=== PATIENT | male | born 1950 | race Caucasian/White ===

== ENCOUNTER 2017-05-25 19:50 | Inpatient (IN) ==
[2017-05-25] MEDS: 0.9 % Sodium Chloride 1,000 ML IVC SCH (22:33)
[2017-05-25 22:34] LABS: Basophils % 0.1 %; Immature Granulocytes % 0.4 % (0-4); Immature Platelets 5.3 % (1.1-6.1); Lymphocytes # 2.3 K/mcL (0.6-4.6); Lymphocytes % 14.6 %; Mean Corpuscular HGB Conc 33.3 g/dL (31.6-35.5); Mean Corpuscular Hemoglobin 29.2 pg (28.0-33.3); Mean Corpuscular Volume 87.5 fL (83.0-100.0); Mean Platelet Volume 10.4 fL (9.4-12.4); Monocytes # 1.6 K/mcL (0.0-1.3); Neutrophils # 11.9 K/mcL (1.6-8.9); Platelet Count 218 K/mcL (140-400); Red Cell Distribution Width 13.2 % (11.5-14.5); Segmented Neutrophils % 74.9 %
[2017-05-25 22:43] LABS: Prothrombin Time 10.5 Seconds (9.4-12.1)
[2017-05-25 22:46] LABS: Activated Partial Thrombo Time 27.5 Seconds (26.0-36.0)
[2017-05-25 22:49] LABS: Alanine Aminotransferase 15 Units/L (0-55); Albumin 3.9 g/dL (3.5-5.0); Albumin/Globulin Ratio 1.1 (1.1-2.2); Alkaline Phosphatase 120 Units/L (38-126); Amylase 43 Units/L (25-125); Aspartate Amino Transferase 21 Units/L (5-34); BUN/Creatinine Ratio 11 (6-26); Bilirubin,Direct 0.2 mg/dL (0.0-0.5); Bilirubin,Indirect 0.3 mg/dL (0.0-1.2); Bilirubin,Total 0.5 mg/dL (0.2-1.2); Blood Urea Nitrogen 15 mg/dL (8-26); Calcium 9.9 mg/dL (8.6-10.8); Carbon Dioxide 33 mEq/L (19-29); Chloride 97 mEq/L (98-109); Globulin 3.5 g/dL (2.4-3.5); Glucose 115 mg/dL (70-99); Magnesium 2.3 mg/dL (1.6-2.6); Osmolality,Calculated 290 (280-300); Phosphorous 4.4 mg/dL (2.3-4.7); Sodium 139 mEq/L (136-145); Total Protein 7.4 g/dL (6.0-8.3); eGFR For African Americans > 60 (> 60); eGFR For Non-African Americans 50 (> 60)
[2017-05-25 22:50] LABS: Lipase < 10 Units/L (8-78)
[2017-05-25] MEDS ORDERED: Levofloxacin 750 MG/150 ML 750 MG/150 ML BAG IVPB ONE (23:17)
--- NOTE | 2017-05-26 00:25 | Emergency Department Note ---
Disposition Clinical Impression: Lactic acidosis Disposition: Admitted As Inpatient Condition: Good [facility]: [facility] Care Provider[facility] - General Adult HPI - General Chief complaint: ED Abdominal Pain Stated complaint: abd pain/n/v Time Seen by Provider: 05/25/17 20:13 Source: patient, EMS Limitations: no limitations Nursing Notes Reviewed: Yes Vital Signs Reviewed: Yes - History of Present Illness HPI Narrative: This is a 66-year-old male presents with concern for bowel obstruction. He is a history of having shrapnel in his abdomen and had previous bowel surgery multiple years ago. He now presents from the CT after noncontrast CT scan of the abdomen which shows possible small bowel traction with adhesion. He has had vomiting since last evening. He has no fever or chills. He does have some active nausea and retching on arrival. Basic laboratory analyses from the [facility] shows no significant metabolic derangement with normal creatinine and additionally shows no significant leukocytosis. The patient was not given any medications at the [facility]. General: No acute distress HEENT: Pupils equal and reactive to light, extraoccular muscle movement is normal, TMS are clear bilaterally. Heart: RRR, No murmor rub or gallop Lungs: lungs clear, no wheezing, rales or ronchi. ABD: Mildly tender without signs of peritonitis Extremities: No cyanosis, clubbing or edema Neuro: CN 2-12 in tact, no focal deficit. strength 5/5. Medical decision making This is a male patient with previous bowel surgeries now with concern for bowel obstruction. 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 This was completed and shows no evidence of overt obstruction but shows potential developing obstruction versus ileus. The patient had an NG tube placed for active emesis with resolution of nausea. There is no significant output from the NG tube. His nausea is now controlled. He did have a bowel movement in the emergency Department which makes me suspect that this is not complete obstruction at this time. I did provide IV hydration as well as Levaquin for possible aspiration pneumonia. The patient will be admitted to hospital for evaluation of pneumonia, ileus, lactic acidosis. Pancultures were sent from the emergency department. The patient was stable at the time of admission. Pain Scale: 5 - Related Data Allergies Allergy/AdvReac Type Severity Reaction Status Date / Time Penicillins AdvReac Intermediate Hives Verified 05/25/17 20:54 All systems ED: reviewed and negative except as stated. Past Medical History - Past Medical History Medical history: Reports: hyperlipidemia, hypertension Psychiatric history: Reports: depression - Social History Smoking Status: Current every day smoker Smokeless Tobacco Status: No Alcohol use: Reports: rarely Drug use: Reports: none Physical Exam - General Limitations: no limitations General appearance: alert Course Vital Signs Temperature 98.4 F 05/25/17 19:52 Pulse Rate 77 05/25/17 19:52 Respiratory Rate 17 05/25/17 19:52 Blood Pressure 131/84 05/25/17 19:52 O2 Sat by Pulse Oximetry 94 05/25/17 19:52 Temperature 98.4 F 05/25/17 19:52 Pulse Rate 72 05/25/17 23:13 Respiratory Rate 16 05/25/17 23:13 Blood Pressure 127/73 05/25/17 23:13 O2 Sat by Pulse Oximetry 95 05/25/17 23:13 Oxygen Delivery Oxygen Delivery Room Air Medical Decision Making - Lab Data Result diagrams: 05/25/17 22:21 05/25/17 22:21 Lab Results 05/25/17 05/25/17 05/25/17 Range/Units 21:10 22:21 22:21 WBC 15.9 H (4.3-11.1) K/mcL RBC 4.80 (4.19-5.50) M/mcL Hgb 14.0 (12.9-16.9) g/dL Hct 42.0 (37.5-50.1) % MCV 87.5 (83.0-100.0) fL MCH 29.2 (28.0-33.3) pg MCHC 33.3 (31.6-35.5) g/dL RDW 13.2 (11.5-14.5) % Plt Count 218 (140-400) K/mcL MPV 10.4 (9.4-12.4) fL Immature Gran % 0.4 (0-4) % Seg Neutrophils % 74.9 % Lymphocytes % 14.6 % Monocytes % 10.0 % Eosinophils % 0.0 % Basophils % 0.1 % Neutrophils # 11.9 H (1.6-8.9) K/mcL Lymphocytes # 2.3 (0.6-4.6) K/mcL Monocytes # 1.6 H (0.0-1.3) K/mcL Eosinophils # 0.0 (0.0-0.6) K/mcL Basophils # 0.0 (0.0-0.2) K/mcL Immature Plt Fraction 5.3 (1.1-6.1) % PT 10.5 (9.4-12.1) Seconds INR 1.0 APTT 27.5 (26.0-36.0) Seconds Sodium (136-145) mEq/L Potassium (3.5-4.5) mEq/L Chloride (98-109) mEq/L Carbon Dioxide (19-29) mEq/L BUN (8-26) mg/dL Creatinine (0.72-1.25) mg/dL Est GFR ( Amer) (> 60) Est GFR (Non-Af Amer) (> 60) BUN/Creatinine Ratio (6-26) Glucose (70-99) mg/dL Calculated Osmolality (280-300) Lactic Acid 5.5 H* (0.5-2.2) mmol/L Calcium (8.6-10.8) mg/dL Phosphorus (2.3-4.7) mg/dL Magnesium (1.6-2.6) mg/dL Total Bilirubin (0.2-1.2) mg/dL Direct Bilirubin (0.0-0.5) mg/dL Indirect Bilirubin (0.0-1.2) mg/dL AST (5-34) Units/L ALT (0-55) Units/L Alkaline Phosphatase (38-126) Units/L Troponin I (0-0.03) ng/mL Serum Total Protein (6.0-8.3) g/dL Albumin (3.5-5.0) g/dL Globulin (2.4-3.5) g/dL Albumin/Globulin Ratio (1.1-2.2) Amylase (25-125) Units/L Lipase (8-78) Units/L 05/25/17 05/25/17 05/25/17 Range/Units 22:21 22:21 22:21 WBC (4.3-11.1) K/mcL RBC (4.19-5.50) M/mcL Hgb (12.9-16.9) g/dL Hct (37.5-50.1) % MCV (83.0-100.0) fL MCH (28.0-33.3) pg MCHC (31.6-35.5) g/dL RDW (11.5-14.5) % Plt Count (140-400) K/mcL MPV (9.4-12.4) fL Immature Gran % (0-4) % Seg Neutrophils % % Lymphocytes % % Monocytes % % Eosinophils % % Basophils % % Neutrophils # (1.6-8.9) K/mcL Lymphocytes # (0.6-4.6) K/mcL Monocytes # (0.0-1.3) K/mcL Eosinophils # (0.0-0.6) K/mcL Basophils # (0.0-0.2) K/mcL Immature Plt Fraction (1.1-6.1) % PT (9.4-12.1) Seconds INR APTT (26.0-36.0) Seconds Sodium 139 (136-145) mEq/L Potassium 4.0 (3.5-4.5) mEq/L Chloride 97 L (98-109) mEq/L Carbon Dioxide 33 H (19-29) mEq/L BUN 15 (8-26) mg/dL Creatinine 1.41 H (0.72-1.25) mg/dL Est GFR ( Amer) > 60 (> 60) Est GFR (Non-Af Amer) 50 L (> 60) BUN/Creatinine Ratio 11 (6-26) Glucose 115 H (70-99) mg/dL Calculated Osmolality 290 (280-300) Lactic Acid 1.5 (0.5-2.2) mmol/L Calcium 9.9 (8.6-10.8) mg/dL Phosphorus 4.4 (2.3-4.7) mg/dL Magnesium 2.3 (1.6-2.6) mg/dL Total Bilirubin 0.5 (0.2-1.2) mg/dL Direct Bilirubin 0.2 (0.0-0.5) mg/dL Indirect Bilirubin 0.3 (0.0-1.2) mg/dL AST 21 (5-34) Units/L ALT 15 (0-55) Units/L Alkaline Phosphatase 120 (38-126) Units/L Troponin I 0.01 (0-0.03) ng/mL Serum Total Protein 7.4 (6.0-8.3) g/dL Albumin 3.9 (3.5-5.0) g/dL Globulin 3.5 (2.4-3.5) g/dL Albumin/Globulin Ratio 1.1 (1.1-2.2) Amylase 43 (25-125) Units/L Lipase < 10 (8-78) Units/L Critical Care Time Total Critical Care Time: 35 Attestation: I think her than 35 minutes of critical care time is sustaining this acutely ill patient suffering from lactic acidosis and possible small bowel obstruction this is excluding billable procedures
[2017-05-26] MEDS ORDERED: 0.9 % Sodium Chloride 1,000 ML ONE (02:08)
[2017-05-26] MEDS: 0.9 % Sodium Chloride 1,000 ML IVC SCH ×4 (02:09→21:06)
[2017-05-26] MEDS ORDERED: Naloxone 0.4 MG/ML INJ IVP PRN (04:53)
--- NOTE | 2017-05-26 05:05 | Internal Med History&Physical ---
Date of Encounter: 05/26/17 Time of Encounter: 05:01 Assessment and Plan (1) Small bowel obstruction Current visit: Yes Status: Acute 1. Will continue npo. 2. NG to LIWS. 3. IV fluid maintenance. 4. Consult surgery. 5. Will order acute abdominal series to evaluate today. (2) Lactic acidosis Current visit: Yes Status: Acute 1. Likely due to SBO. 2. Trend lactate levels. 3. Continue IVF and IV antibiotics. 4. Follow blood cultures. (3) DVT prophylaxis Current visit: Yes Status: Acute 1. Heparin SQ. Internal Medicine - H&P: HPI Chief complaint: abdominal pain; vomiting Admitted From: Emergency Dept Plans for Post Hospital Care: Home History of present illness: Mr. Ochoa is a 66 year old male who presented to our ER from the [place] urgent care. He had a 3 to 4-day history of protracted nausea, vomiting, abdominal pain, and abdominal cramping. This led him to go to the urgent care at the [place] who then referred him to our ER. CT scan and workup revealed small bowel obstruction with lactic acidosis. He was fluid resuscitated and had an NG tube placed. Additionally, blood cultures were drawn and antibiotics were started. The lactic acid was normal. He was then admitted to the hospitalist service. Upon my assessment of the patient, he feels much better. He still has some vague abdominal pain and cramping, but he is starting to pass flatus now. He has an NG in place, and he states that the NG tube has helped his symptoms immensely. He has a history of exploratory laparotomy from a accident. He denies any history of prior small bowel obstruction. Given the severity of his presentation, lactic acidosis, and CT findings, I am going to consult surgery for assistance in comanagement and surgical guidance. Past Med Surg Social Fam HX - Past Medical History Attestation: Yes The following information was validated with the patient. Source: patient, old records reviewed ([place] records) Medical history: hyperlipidemia, hypertension Psychiatric history: depression - Past Surgical History Surgical History: other (exploratory laparatomy) - Social History Smoking Status: Current every day smoker Smokeless Tobacco Status: No Alcohol use: rarely Drug use: none Current living situation: Home Activity Level: Independent ambulation - Family History Mother Living Status: Hx Family Cancer: Yes (Breast) Sister Living Status: Hx Family Endocrine Disorder: Yes (Lupus) Internal Medicine - H&P: Meds 3 Allergy/AdvReac Type Severity Reaction Status Date / Time Penicillins AdvReac Intermediate Hives Verified 05/25/17 20:54 - Constitutional Constitutional: fever(s), no chills, no night sweats - EENT Eyes: no blurry vision, no change in vision Ears: no ear pain, no tinnitus Nose, mouth and throat: no nasal congestion, no sinus pressure, no sore throat - Cardiovascular Cardiovascular ROS IM: no chest pain, no dyspnea, no dyspnea on exertion, no palpitations - Respiratory Respiratory: no cough, no hemoptysis, no excessive phlegm production - Gastrointestinal Gastrointestinal: abdominal pain, cramping, nausea, vomiting, no diarrhea, no hematemesis, no hematochezia, no melena - Genitourinary Genitourinary ROS male: no dysuria, no flank pain, no hematuria - Musculoskeletal Musculoskeletal ROS IM: no arthralgias, no back pain - Integumentary Integumentary IM: no rash, no jaundice - Neurological Neurological ROS: no dizziness, no focal weakness, no frequent falls, no headache(s) - Psychiatric Psychiatric: no anxiety, no depression - Endocrine Endocrine IM: no polydipsia, no polyuria - Hematologic/Lymphatic Hematologic/Lymphatic: no easy bruising, no lymphadenopathy - Allergic/Immunologic Allergic/Immunologic: no wheezing, no GI upset with certain foods - Constitutional Vitals: Temp Pulse Resp BP Pulse Ox 97.9 F 69 15 94/57 96 05/26/17 03:28 05/26/17 03:28 05/26/17 03:28 05/26/17 03:28 05/26/17 03:28 General appearance: Present: cooperative, mild distress, A&O X 3, pleasant - Head Head exam: Present: atraumatic, normal inspection - Eye Eye exam: Present: EOMI, PERRL. Absent: scleral icterus Pupils: Present: normal accommodation - ENT ENT exam: Present: mucous membranes dry, normal exam Additional comments: NG tube in place - Neck Neck exam general surgery: Present: full ROM, supple. Absent: tenderness - Respiratory Respiratory exam: Present: CTAB. Absent: chest wall tenderness, rales, rhonchi , wheezes - Cardiovascular Cardiovascular exam: Present: RRR, +S1, +S2. Absent: diastolic murmur, systolic murmur - GI/Abdominal GI/Abdominal exam: Present: distended (mildy), hypoactive bowel sounds, tenderness (mild), no peritoneal signs. Absent: guarding, hepatomegaly, normal bowel sounds, rebound, splenomegaly - Extremities Exam Extremities exam: Present: full ROM, warm, radial pulses palpable and symmetrical. Absent: calf tenderness, joint swelling - Back Exam Back exam: Absent: CVA tenderness (L), CVA tenderness (R) - Neurological Exam Neurological exam: Present: alert, CN II-XII intact, oriented X3, no focal deficits, strengths equal and symetr throughout - Psychiatric Psychiatric exam: Present: normal affect, normal mood - Skin Skin exam: Present: dry, warm. Absent: rash Internal Med - H&P Results - Labs CBC & Chem 7: 05/25/17 22:21 05/25/17 22:21 - EKG Data -: EKG Interpreted by Myself EKG shows normal: sinus rhythm - EKG Data EKG comments: 05/26/17 05:10 NSR; WNL - Diagnostic Studies CT scan - abdomen Additional comments: Report reviewed: JEOVANNYO
[2017-05-26] MEDS: Pantoprazole 40 MG VIAL IVP SCH (05:26)
[2017-05-26] MEDS: *HR* Heparin 5,000 UNIT/ML VIAL SQ SCH ×2 (05:26→18:05)
[2017-05-26 06:01] LABS: Basophils % 0.1 %; Eosinophils # 0.1 K/mcL (0.0-0.6); Eosinophils % 0.5 %; Hematocrit 31.9 % (37.5-50.1); Immature Granulocytes % 0.1 % (0-4); Lymphocytes # 3.4 K/mcL (0.6-4.6); Lymphocytes % 33.6 %; Mean Corpuscular HGB Conc 33.2 g/dL (31.6-35.5); Mean Corpuscular Hemoglobin 29.1 pg (28.0-33.3); Mean Corpuscular Volume 87.6 fL (83.0-100.0); Mean Platelet Volume 10.3 fL (9.4-12.4); Monocytes % 9.9 %; Neutrophils # 5.7 K/mcL (1.6-8.9); Platelet Count 157 K/mcL (140-400); Red Blood Count 3.64 M/mcL (4.19-5.50); Red Cell Distribution Width 13.3 % (11.5-14.5); Segmented Neutrophils % 55.8 %
[2017-05-26 06:10] LABS: Hemoglobin 10.6 g/dL (12.9-16.9)
[2017-05-26 06:14] LABS: Alanine Aminotransferase 11 Units/L (0-55); Albumin 2.7 g/dL (3.5-5.0); Albumin/Globulin Ratio 1.1 (1.1-2.2); Alkaline Phosphatase 83 Units/L (38-126); Aspartate Amino Transferase 16 Units/L (5-34); BUN/Creatinine Ratio 15 (6-26); Bilirubin,Total 0.5 mg/dL (0.2-1.2); Blood Urea Nitrogen 15 mg/dL (8-26); Carbon Dioxide 27 mEq/L (19-29); Chloride 105 mEq/L (98-109); Globulin 2.4 g/dL (2.4-3.5); Glucose 94 mg/dL (70-99); Osmolality,Calculated 285 (280-300); Potassium 4.1 mEq/L (3.5-4.5); Sodium 137 mEq/L (136-145); Total Protein 5.1 g/dL (6.0-8.3); eGFR For African Americans > 60 (> 60); eGFR For Non-African Americans > 60 (> 60)
[2017-05-26] MEDS ORDERED: MetroNIDAZOLE 500 MG/100 ML 500 MG/100 ML BAG IVPB SCH (08:00)
--- NOTE | 2017-05-26 09:49 | Event Note ---
<Serene Hoover - Last Filed: 05/26/17 14:09> Date of Encounter: 05/26/17 Time of Encounter: 09:30 Patient seen up in bed comfortably watching television he states that his abdominal pain has almost resolved in his only tender to palpation his only complaint is the NG tube and he would like to out as soon as possible he denies fever, chills, nausea, vomiting. Gen.: Vitals noted. No acute distress. AAOx3 HEENT: oropharynx clear, Normocephalic, atraumatic Cardiac: RRR, no murmur, +S1/S2 Pulmonary: CTA bilaterally, no wheezes, rales or rhonchi, equal chest expansion Abdomen: soft, minimal epigastric tender, Bowel sounds noted, no guarding Extremities: no BLE edema, nontender calf, no cyanosis or clubbing Neuro: A&Ox3, moves all extremities, no focal deficits Psych: Appropriate mood and behavior A/P: small bowel obstruction CT abdomen showed development of small bowel obstruction patient reports that has abdominal pain is improving patient reports a stool smear he had yesterday blood cultures pending -Surgery following -NG tube placed -NPO, bowel rest -continue antiemetics -stop antibiotics due to decreased lactic acid (0.7) and afebrile -supportive care -serial abdominal exams Lactic acidosis most likely due to SPO improving and is now 0.7, admission it was 1.5 -see plan above Anemia most likely delutional from IV fluid there is no active bleeding patient has a history of hemorrhoids -fecal heme occult ordered -will continue to monitor H&H DVT prophylaxis heparin sq <Do Monroe - Last Filed: 05/26/17 15:41> Date of Encounter: 05/26/17 I saw and examined the patient independently. I have discussed with resident Dr Hoover regarding management plan. Patient feels fine, can passing gas. Consider partial small bowel obstruction. Surgical consult appreciated. We will continue nothing by mouth, IV fluid, NG tube with intermittent suction. Continue closely monitor patient.
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
[2017-05-26 11:56] LABS: Bilirubin,Urine Negative (Negative); Blood,Urine Negative (Negative); Clarity,Urine Clear (Clear); Color,Urine Yellow (Yellow); Glucose,Urine (UA) Normal (Normal); Ketones,Urine Negative (Negative); Leukocyte Esterase,Urine Negative (Negative); Nitrite,Urine Negative (Negative); PH,Urine 6.5 pH Units (5.0-8.0); Protein,Urine Negative (Neg-Trace); Specific Gravity,Urine 1.018 (1.010-1.025); Urobilinogen,Urine Normal (Normal)
[2017-05-26] MEDS: *HR* Morphine 2 MG/ML SYRINGE IVP PRN ×2 (15:48→21:05)
--- NOTE | 2017-05-26 16:53 | Electrocardiograph Report ---
[address] [address] Test Date: 2017-05-25 Pat Name: Renan Ochoa Department: 102 Room: 3A Gender: M Helpdesk Manager: Ekp : 1950 Requested By: Stewart Huerta Order Number: [id number] Reading MD: Marilyn Aviles Measurements Intervals [place] Rate: 74 P: 43 TX: 152 QRS: 34 QRSD: 85 T: 46 QT: 364 QTc: 392 Interpretive Statements SINUS RHYTHM Electronically Signed On 05-26-2017 16:51:33 EDT by Marilyn Aviles
[2017-05-27] MEDS ORDERED: Levofloxacin 750 MG/150 ML 750 MG/150 ML BAG IVPB SCH
[2017-05-27] MEDS: *HR* Promethazine 25 MG/ML VIAL IVP PRN ×2 (02:03→19:40)
[2017-05-27] MEDS: *HR* Morphine 2 MG/ML SYRINGE IVP PRN ×2 (02:04→19:39)
[2017-05-27] MEDS: 0.9 % Sodium Chloride 1,000 ML IVC SCH ×3 (05:08→22:49)
[2017-05-27] MEDS: *HR* Heparin 5,000 UNIT/ML VIAL SQ SCH ×2 (05:34→17:00)
[2017-05-27] MEDS: Pantoprazole 40 MG VIAL IVP SCH (05:35)
[2017-05-27 05:53] LABS: Basophils % 0.2 %; Eosinophils # 0.1 K/mcL (0.0-0.6); Hematocrit 34.1 % (37.5-50.1); Hemoglobin 11.2 g/dL (12.9-16.9); Immature Granulocytes % 0.2 % (0-4); Lymphocytes # 2.7 K/mcL (0.6-4.6); Lymphocytes % 30.7 %; Mean Corpuscular HGB Conc 32.8 g/dL (31.6-35.5); Mean Corpuscular Hemoglobin 28.8 pg (28.0-33.3); Mean Corpuscular Volume 87.7 fL (83.0-100.0); Mean Platelet Volume 10.8 fL (9.4-12.4); Monocytes # 0.6 K/mcL (0.0-1.3); Monocytes % 6.9 %; Neutrophils # 5.4 K/mcL (1.6-8.9); Platelet Count 164 K/mcL (140-400); Red Blood Count 3.89 M/mcL (4.19-5.50); Red Cell Distribution Width 13.2 % (11.5-14.5)
[2017-05-27 06:07] LABS: BUN/Creatinine Ratio 18 (6-26); Blood Urea Nitrogen 15 mg/dL (8-26); Calcium 8.6 mg/dL (8.6-10.8); Carbon Dioxide 23 mEq/L (19-29); Chloride 110 mEq/L (98-109); Glucose 72 mg/dL (70-99); Osmolality,Calculated 289 (280-300); Potassium 4.1 mEq/L (3.5-4.5); Sodium 140 mEq/L (136-145); eGFR For African Americans > 60 (> 60); eGFR For Non-African Americans > 60 (> 60)
[2017-05-27 06:08] LABS: % Iron Saturation 21 % (20-55); Iron 49 mcg/dL (65-175); Transferrin 163 mg/dL (174-364)
[2017-05-27 06:28] LABS: Ferritin 158 ng/ml (22-275)
[2017-05-27 06:36] LABS: Folate 16.3 ng/mL (7.0-31.4)
--- NOTE | 2017-05-27 09:51 | Internal Med Progress Note ---
<Serene Hoover - Last Filed: 05/27/17 12:40> Date of Encounter: 05/27/17 Time of Encounter: 09:48 - Assessment and plan (1) Small bowel obstruction Current Visit: Yes Status: Acute Assessment and plan: small bowel obstruction CT abdomen showed development of small bowel obstruction patient reports that has abdominal pain is improving patient reports a stool smear he had yesterday blood cultures- preliminary no growth patient reports resolved abdominal pain and nausea -Surgery following -NG tube removed -clear liquid diet ordered -continue antiemetics -supportive care -serial abdominal exams (2) Lactic acidosis Current Visit: Yes Status: Resolved Assessment and plan: most likely due to SPO improved now 0.7, admission it was 1.5 -see plan above (3) Hyperlipidemia Current Visit: Yes Status: Acute Assessment and plan: history of hyperlipidemia -continue home medications Qualifiers: Qualified Code(s): E78.5 - Hyperlipidemia, unspecified (4) Hypertension Current Visit: Yes Status: Acute Assessment and plan: history of hypertension -continue home medications Qualifiers: Qualified Code(s): I10 - Essential (primary) hypertension (5) Depression Current Visit: Yes Status: Acute Assessment and plan: history of depression -continue home medications Qualifiers: Qualified Code(s): F32.9 - Major depressive disorder, single episode, unspecified (6) DVT prophylaxis Current Visit: Yes Status: Acute Assessment and plan: Heparin SQ - Subjective Interval history: Laying in bed comfortably he reports passing gas but no stool he has no complaints at this time he denies fever, chills, abdominal pain, nausea, vomiting reports that he may be able to tolerate food - Constitutional Vitals: Temp Pulse Resp BP Pulse Ox 98.1 F 89 15 136/72 94 05/27/17 07:35 05/27/17 07:35 05/27/17 03:06 05/27/17 07:35 05/27/17 08:35 General appearance: Present: cooperative, mild distress, A&O X 3, pleasant Exam: Gen.: Vitals noted. No acute distress. AAOx3 HEENT: oropharynx clear, Normocephalic, atraumatic Cardiac: RRR, no murmur, +S1/S2 Pulmonary: CTA bilaterally, no wheezes, rales or rhonchi, equal chest expansion Abdomen: soft, minimal LLQ and RLQ tender, Bowel sounds noted, no guarding MSK: ROM intact, no joint swelling noted Extremities: no BLE edema, nontender calf, no cyanosis or clubbing Neuro: A&Ox3 Psych: Appropriate mood and behavior Internal Medicine: Result - Labs CBC & Chem 7: 05/27/17 04:48 05/27/17 04:48 Labs: Short CBC 05/27/17 Range/Units 04:48 WBC 8.8 (4.3-11.1) K/mcL Hgb 11.2 L (12.9-16.9) g/dL Hct 34.1 L (37.5-50.1) % Plt Count 164 (140-400) K/mcL Neutrophils # 5.4 (1.6-8.9) K/mcL BMP 05/27/17 04:48 Sodium 140 Potassium 4.1 Chloride 110 H Carbon Dioxide 23 BUN 15 Creatinine 0.85 Glucose 72 Calcium 8.6 Urine 05/26/17 Range/Units 11:50 Urine Color Yellow (Yellow) Urine Clarity Clear (Clear) Urine pH 6.5 (5.0-8.0) pH Units Ur Specific [place] 1.018 (1.010-1.025) Urine Protein Negative (Neg-Trace) mg/dL Urine Glucose (UA) Normal (Normal) mg/dL - ABG Interpretation ABG results: PT/INR, D-dimer PT 10.5 Seconds (9.4-12.1) 05/25/17 22:21 - Impressions Impressions Chest/Abdomen X-ray 05/26/17 04:53 IMPRESSION: No acute process in the chest. No bowel obstruction or free air. D/ / Leonardo Jonas MD / Leonardo Jonas MD Interpreting Provider: Leonardo Jonas MD - VTE Documentation of Mechanical Device: Intermittent pneumatic compression device Consult Discharge Plan - Plan [facility] Provider[facility] - <Do Monroe - Last Filed: 05/27/17 15:52> Date of Encounter: 05/27/17 - Constitutional Vitals: Temp Pulse Resp BP Pulse Ox 97.7 F 79 20 152/76 96 05/27/17 10:48 10/11/17 10:48 05/27/17 10:48 05/27/17 10:48 05/27/17 10:48 Internal Medicine: Result - Labs CBC & Chem 7: 05/27/17 04:48 05/27/17 04:48 Labs: Short CBC 05/27/17 Range/Units 04:48 WBC 8.8 (4.3-11.1) K/mcL Hgb 11.2 L (12.9-16.9) g/dL Hct 34.1 L (37.5-50.1) % Plt Count 164 (140-400) K/mcL Neutrophils # 5.4 (1.6-8.9) K/mcL BMP 05/27/17 04:48 Sodium 140 Potassium 4.1 Chloride 110 H Carbon Dioxide 23 BUN 15 Creatinine 0.85 Glucose 72 Calcium 8.6 - ABG Interpretation ABG results: PT/INR, D-dimer PT 10.5 Seconds (9.4-12.1) 05/25/17 22:21 - Impressions Impressions Chest/Abdomen X-ray 05/26/17 04:53 IMPRESSION: No acute process in the chest. No bowel obstruction or free air. D/ / Leonardo Jonas MD / Leonardo Jonas MD Interpreting Provider: Leonardo Jonas MD - Attending Attestation I saw and examined the patient independently. I have discussed with the resident Dr. Hoover regarding the management plan. Agree with the documentation. Patient said abdominal pain has improved. No nausea, no vomiting. NG tube has been removed, started clear liquid diet. Vitals are stable. Still can pass gas. Will continue close monitoring. Advance diet as tolerated.
--- NOTE | 2017-05-27 11:39 | General Surgery Progress Note ---
<TdoSapna Licea - Last Filed: 05/27/17 13:13> Date of Encounter: 05/27/17 Time of Encounter: 11:36 - Assessment and Plan (1) Small bowel obstruction Current Visit: Yes Status: Acute Pt states he is feeling much better, but does feel like he is constipated. He is passing flatus. Had a BM (smear), and NG tube has been removed. Medicine, RN , and patient are unsure who removed NG tube. Pt was alert and oriented x3 at the time of the assessment and states, "Some lady I had not seen before came in and took the tube out of my nose." The NG is noted in the trash can and the wall suction remains on . No surgical intervention is indicated at this time. Added milk of molasses enemas BID and miralax daily. Recommend follow-up with PCP or pt's pain management for opioid induced constipation. OK to trial clear liquids without carbonation at this time. Diet, antibiotcs, and further clinical course per medicine. Surgery will sign off at this time. Please reconsult if needs or questions arise. (2) DVT prophylaxis Current Visit: Yes Status: Acute Management per medicine (3) Lactic acidosis Current Visit: Yes Status: Resolved See above Subjective Patient reports: no new complaints, feels better, still having pain, pain is less, voiding w/o difficulty, no flatus, no bowel movement, afebrile Objective Vital Signs - Last 8 Hours Temp Pulse Resp BP Pulse Ox 05/27/17 10:48 97.7 F 79 20 152/76 96 05/27/17 08:35 94 05/27/17 07:35 98.1 F 89 136/72 20 Intake and Output 05/26/17 05/27/17 05/27/17 23:59 07:59 15:59 Intake Total 1000 / 1000 1000 / 1000 0 / 0 Output Total 700 / 700 675 / 675 100 / 100 Balance 300 / 300 325 / 325 -100 / -100 Intake: IV Fluids 1000 / 1000 1000 / 1000 0.9 % Sodium Chloride 1,000 ML 1000 / 1000 1000 / 1000 @ 125 mls/hr IVC .Q8H [facility] Rx#: [id number] Oral 0 / 0 0 / 0 0 / 0 Output: Urine 700 / 700 425 / 425 100 / 100 Gastric Drainage 250 / 250 Other: Meal NPO NPO Percent of Meal Consumed 0% 0% # Bowel Movements 0 Weight 70.9 kg Blood Glucose* 87 77 71 Patient Weight 05/27/17 23:59 Weight 70.9 kg - General physical appearance well developed, well nourished, no distress - Eyes normal ocular movement - ENT atraumatic, normocephalic - Neck Neck exam: trachea midline - Respiratory normal expansion, normal respiratory effort, clear to auscultation - Cardiovascular Cardiovascular exam: Present: RRR - Abdomen Abdomen: Present: bowel sounds present, soft, non tender Hernia: none - Integumentary no rash, no growths - Neurologic CN 2-12 grossly intact, normal coordination, normal sensation - Musculoskeletal normal gait, normal posture - Psychiatric oriented to time, oriented to person, oriented to place, speech is normal, memory intact - Labs 05/27/17 04:48 05/27/17 04:48 Diabetes panel 05/27/17 Range/Units 04:48 Sodium 140 (136-145) mEq/L Potassium 4.1 (3.5-4.5) mEq/L Chloride 110 H (98-109) mEq/L Carbon Dioxide 23 (19-29) mEq/L BUN 15 (8-26) mg/dL Creatinine 0.85 (0.72-1.25) mg/dL Glucose 72 (70-99) mg/dL Calcium 8.6 (8.6-10.8) mg/dL Calcium panel 05/27/17 Range/Units 04:48 Calcium 8.6 (8.6-10.8) mg/dL Pituitary panel 05/27/17 Range/Units 04:48 Sodium 140 (136-145) mEq/L Potassium 4.1 (3.5-4.5) mEq/L Chloride 110 H (98-109) mEq/L Carbon Dioxide 23 (19-29) mEq/L BUN 15 (8-26) mg/dL Creatinine 0.85 (0.72-1.25) mg/dL Glucose 72 (70-99) mg/dL Calcium 8.6 (8.6-10.8) mg/dL Adrenal panel 05/27/17 Range/Units 04:48 Sodium 140 (136-145) mEq/L Potassium 4.1 (3.5-4.5) mEq/L Chloride 110 H (98-109) mEq/L Carbon Dioxide 23 (19-29) mEq/L BUN 15 (8-26) mg/dL Creatinine 0.85 (0.72-1.25) mg/dL Glucose 72 (70-99) mg/dL Calcium 8.6 (8.6-10.8) mg/dL - VTE Documentation of Mechanical Device: Intermittent pneumatic compression device Consult Discharge Plan - Plan Referrals: [facility] [Outside] <Erna Ortiz - Last Filed: 05/28/17 07:28> Date of Encounter: 05/27/17 Time of Encounter: 12:00 - Assessment and Plan (1) Small bowel obstruction Current Visit: Yes Status: Acute patient appears to be asymptomatic denies abdominal pain and abdomen is soft and nontender, no distention ngt removed, likely by patient will start clears and see how he tolerates Subjective Patient reports: feels better Narrative: patient is confused this afternoon, doesnt remember why he is here he denies abdominal pain, nausea unsure if he's had flatus Objective Vital Signs - Last 8 Hours Temp Pulse Resp BP Pulse Ox 05/28/17 06:44 98.4 F 51 16 108/62 97 05/28/17 03:50 98.7 F 65 15 113/57 92 Intake and Output 05/27/17 05/27/17 05/28/17 15:59 23:59 07:59 Intake Total 0 / 0 1000 / 1000 413 / 413 Output Total 100 / 100 750 / 750 375 / 375 Balance -100 / -100 250 / 250 38 / 38 Intake: IV Fluids 1000 / 1000 413 / 413 0.9 % Sodium Chloride 1,000 ML 1000 / 1000 413 / 413 @ 80 mls/hr IVC .[id number] Rx #:[id number] Oral 0 / 0 0 / 0 0 / 0 Output: Urine 100 / 100 600 / 600 375 / 375 Stool 150 / 150 Other: Meal NPO Percent of Meal Consumed 0% Stool Size Moderate Stool Consistency liquid Stool Color Brown # Bowel Movements 0 1 0 Weight 71.2 kg Blood Glucose* 71 Patient Weight 05/28/17 23:59 Weight 71.2 kg - General physical appearance well developed, well nourished, no distress, no pain - Eyes normal ocular movement - ENT normal mucosa, normocephalic - Neck Neck exam: trachea midline - Respiratory normal expansion, clear to auscultation - Cardiovascular Cardiovascular exam: Present: RRR - Abdomen Abdomen: Present: bowel sounds present, soft, non tender. Absent: distended - Integumentary no rash, no growths - Neurologic CN 2-12 grossly intact - Musculoskeletal normal posture - Psychiatric other (pleasantly confused as to why at hospital) - Labs 05/28/17 03:37 05/28/17 03:37 Diabetes panel 05/28/17 Range/Units 03:37 Sodium 142 (136-145) mEq/L Potassium 3.4 L (3.5-4.5) mEq/L Chloride 113 H (98-109) mEq/L Carbon Dioxide 21 (19-29) mEq/L BUN 9 (8-26) mg/dL Creatinine 0.82 (0.72-1.25) mg/dL Glucose 84 (70-99) mg/dL Calcium 8.2 L (8.6-10.8) mg/dL Calcium panel 05/28/17 Range/Units 03:37 Calcium 8.2 L (8.6-10.8) mg/dL Pituitary panel 05/28/17 Range/Units 03:37 Sodium 142 (136-145) mEq/L Potassium 3.4 L (3.5-4.5) mEq/L Chloride 113 H (98-109) mEq/L Carbon Dioxide 21 (19-29) mEq/L BUN 9 (8-26) mg/dL Creatinine 0.82 (0.72-1.25) mg/dL Glucose 84 (70-99) mg/dL Calcium 8.2 L (8.6-10.8) mg/dL Adrenal panel 05/28/17 Range/Units 03:37 Sodium 142 (136-145) mEq/L Potassium 3.4 L (3.5-4.5) mEq/L Chloride 113 H (98-109) mEq/L Carbon Dioxide 21 (19-29) mEq/L BUN 9 (8-26) mg/dL Creatinine 0.82 (0.72-1.25) mg/dL Glucose 84 (70-99) mg/dL Calcium 8.2 L (8.6-10.8) mg/dL - Imaging CT scan - abdomen: report reviewed, image reviewed CT scan - pelvis: report reviewed, image reviewed - Attending Attestation I have personally performed a face to face evaluation on this patient. I have reviewed and agree with the care plan. History and Exam by me shows:
[2017-05-27] MEDS ORDERED: Ipratropium/Albuterol Neb 3 ML IH PRN (12:03)
[2017-05-27] MEDS: Milk and Molasses Enema 200 ML RC SCH ×2 (13:03→22:14)
[2017-05-27] MEDS: Gabapentin 400 MG CAPSULE PO SCH ×2 (15:26→21:25)
[2017-05-28] MEDS: *HR* Morphine 2 MG/ML SYRINGE IVP PRN ×3 (03:40→13:45)
[2017-05-28 03:55] LABS: Basophils % 0.2 %; Eosinophils # 0.1 K/mcL (0.0-0.6); Eosinophils % 1.5 %; Hematocrit 29.9 % (37.5-50.1); Hemoglobin 9.9 g/dL (12.9-16.9); Immature Granulocytes % 0.1 % (0-4); Lymphocytes # 3.2 K/mcL (0.6-4.6); Lymphocytes % 40.1 %; Mean Corpuscular HGB Conc 33.1 g/dL (31.6-35.5); Mean Corpuscular Hemoglobin 29.2 pg (28.0-33.3); Mean Corpuscular Volume 88.2 fL (83.0-100.0); Mean Platelet Volume 10.5 fL (9.4-12.4); Monocytes # 0.7 K/mcL (0.0-1.3); Monocytes % 8.6 %; Platelet Count 155 K/mcL (140-400); Red Blood Count 3.39 M/mcL (4.19-5.50); Red Cell Distribution Width 13.1 % (11.5-14.5); Segmented Neutrophils % 49.5 %
[2017-05-28 04:11] LABS: BUN/Creatinine Ratio 11 (6-26); Blood Urea Nitrogen 9 mg/dL (8-26); Calcium 8.2 mg/dL (8.6-10.8); Carbon Dioxide 21 mEq/L (19-29); Chloride 113 mEq/L (98-109); Glucose 84 mg/dL (70-99); Osmolality,Calculated 292 (280-300); Potassium 3.4 mEq/L (3.5-4.5); Sodium 142 mEq/L (136-145); eGFR For African Americans > 60 (> 60); eGFR For Non-African Americans > 60 (> 60)
[2017-05-28] MEDS: Pantoprazole 40 MG VIAL IVP SCH (05:26)
[2017-05-28] MEDS: *HR* Heparin 5,000 UNIT/ML VIAL SQ SCH (05:26)
[2017-05-28] MEDS: Gabapentin 400 MG CAPSULE PO SCH (08:12)
--- NOTE | 2017-05-28 08:43 | Discharge Summary ---
<Serene Hoover - Last Filed: 05/28/17 11:35> Date of Encounter: 05/28/17 Time of Encounter: 08:41 - Discharge Diagnosis (1) Small bowel obstruction Priority: Primary Status: Acute (2) Lactic acidosis Priority: Secondary Status: Resolved (3) Hyperlipidemia Priority: Secondary Status: Acute Qualifiers: Qualified Code(s): E78.5 - Hyperlipidemia, unspecified (4) Hypertension Priority: Secondary Status: Acute Qualifiers: Qualified Code(s): I10 - Essential (primary) hypertension (5) Depression Priority: Secondary Status: Acute Qualifiers: Qualified Code(s): F32.9 - Major depressive disorder, single episode, unspecified (6) DVT prophylaxis Priority: Secondary Status: Acute - Discharge Medications Home Medications: Albuterol Sulfate [Albuterol Inhaler] 2 puff IH Q6H PRN 05/26/17 [History] BuPROPion [Wellbutrin] 100 mg PO QAM 05/26/17 [History] Cholecalciferol (D-3) [Vitamin D] 3,000 unit PO DAILY 05/26/17 [History] Diphenhydramine HCl [Nighttime Sleep Aid] 50 mg PO HS 05/26/17 [History] Docusate Sodium [Dok] 100 mg PO BID 05/26/17 [History] Fluticasone Propionate Nasal [Flonase] 2 spr NS DAILY 05/26/17 [History] Gabapentin [Neurontin] 400 mg PO TID 05/26/17 [History] Ipratropium/Albuterol Neb [Duoneb] 3 ml PO QID PRN 05/26/17 [History] Lisinopril 2.5 mg PO DAILY 05/26/17 [History] Loratadine [Allergy Relief] 10 mg PO DAILY 05/26/17 [History] Methocarbamol [Robaxin-750] 750 mg PO QID 05/26/17 [History] Morphine Sulfate [Arymo ER] 15 mg PO BID 05/26/17 [History] Multivit-Min/FA/Lycopen/Lutein [A Thru Z Select Multivit Tab] 1 tab PO DAILY 06/02 [History] Omeprazole [PriLOSEC] 20 mg PO DAILY 05/26/17 [History] Ondansetron [Zofran] 8 mg PO BID PRN 05/26/17 [History] Quetiapine Fumarate [Seroquel] 150 mg PO HS 05/26/17 [History] Simvastatin [Zocor] 10 mg PO QPM 05/26/17 [History] Terazosin [Hytrin] 1 mg PO HS 05/26/17 [History] Venlafaxine [Effexor] 75 mg PO BID 05/26/17 [History] Allergies/Adverse Reactions: 3 Allergy/AdvReac Type Severity Reaction Status Date / Time Penicillins AdvReac Intermediate Hives Verified 05/25/17 20:54 Date of admission: 05/26/17 00:36 Primary care physician: PCP [place] Consults: 05/26/17 04:59 Consult to Surgery [CONS] Routine Consulting Provider: [facility] Reason for Consult: SBO Call Completed: Yes Discharging clinician: Do Monroe - Patient Status Disposition: Home, Self-Care Condition: Good Functional capacity at discharge: independent ambulation Overall status at discharge: patient is progressing back to baseline - Discharge Instructions Instructions: Depression (DC), Chronic Hypertension (DC) Follow Up With: [facility] [Outside] Additional Instructions: Follow-up with your PCP in about a week. we stopped your vitamin B12, please follow up with your PCP on whether or not you need to continue taking vitamin B12 return hospital should you develop fever, chills, worsening abdominal pain, weakness, dizziness. - Diet and Activity Activity: increase activity as tolerated, resume usual activities as tolerated Diet: advance to your usual diet Hospital course: Mr. Ochoa is a 66 year old male who presented to our ER from the [place] urgent care. He had a 3 to 4-day history of protracted nausea, vomiting, abdominal pain, and abdominal cramping. This led him to go to the urgent care at the [place] who then referred him to our ER. CT scan and workup revealed small bowel obstruction with lactic acidosis. He was fluid resuscitated and had an NG tube placed. Additionally, blood cultures were drawn and antibiotics were started. The lactic acid was normal. He was then admitted to the hospitalist service. He still has some vague abdominal pain and cramping, but he is starting to pass flatus now. He has an NG in place, and he states that the NG tube has helped his symptoms immensely. He has a history of exploratory laparotomy from a accident. He denies any history of prior small bowel obstruction. Surgery was consulted in the patient was placed NPO, serial abdominal exams, supportive care, anti-emetics. Patient continued to clinically improved. He reported that he had small bowel movements. The patient's WBC improved and was within normal limits. Blood culture preliminary negative. Patient continued to clinically improved and reported that has abdominal pain had resolved. He denied nausea, vomiting, fever, chills, abdominal pain, chest pain, shortness of breath. The patient had been informed that he could be discharged today pending that he tolerated a regular diet for lunch. The patient said he was well pleased because he wanted to go home to see his dog. Surgery signed off. The patient was informed to follow up with PCP. Patient stated clear understanding and treatment plan and all questions were answered. Patient is alert and oriented times 3 with full capacity. He is informed to return to the hospital should he develop fever, chills, worsening abdominal pain, dizziness, weakness. - Time Spent with Patient Total time spent providing and/or coordinating discharge services: - Constitutional Vitals: Temp Pulse Resp BP Pulse Ox 98.4 F 51 16 108/62 97 05/28/17 06:44 05/28/17 06:44 05/28/17 06:44 05/28/17 06:44 05/28/17 06:44 General appearance: Present: cooperative, mild distress, A&O X 3, pleasant Exam: Gen.: Vitals noted. No acute distress. AAOx3 HEENT: oropharynx clear, Normocephalic, atraumatic Cardiac: RRR, no murmur, +S1/S2 Pulmonary: CTA bilaterally, no wheezes, rales or rhonchi, equal chest expansion Abdomen: soft, nontender, Bowel sounds noted, no guarding MSK: ROM intact, no joint swelling noted Extremities: no BLE edema, nontender calf, no cyanosis or clubbing Neuro: A&Ox3, moves all extremities Psych: Appropriate mood and behavior - VTE Documentation of Mechanical Device: Intermittent pneumatic compression device <Do Monroe - Last Filed: 05/28/17 14:10> Date of Encounter: 05/28/17 Date of admission: 05/26/17 00:36 Primary care physician: [facility] Consults: 05/26/17 04:59 Consult to Surgery [CONS] Routine Consulting Provider: [facility] Reason for Consult: SBO Call Completed: Yes Hospital course: Mr. Ochoa is a 66 year old male - Time Spent with Patient Total time spent providing and/or coordinating discharge services: - Constitutional Vitals: Temp Pulse Resp BP Pulse Ox 98.3 F 69 15 113/70 96 05/28/17 10:18 05/28/17 10:18 05/28/17 10:18 05/28/17 10:18 05/28/17 10:18 - Attending Attestation I saw and examined the patient independently. I have discussed with resident Dr Hoover regarding discharge planning. Agree with the documentation. Patient admitted for small bowel obstruction, which is most likely partial obstruction as patient can pass gas. Patient has history of abdominal surgery, which is considered the reason of SBO. Surgical consult was called. Patient was placed on nothing by mouth, NG tube, IV fluid. After treatment, his symptoms has resolved, diet has been advanced to soft diet. Patient tolerated diet well. We will discharge patient home today. Patient was educated to avoid large amount of meal, tried to take low fiber diet. Patient also made aware that the small bowel obstruction may happen again and he needed to come to Hospital if the symptoms come back again.
[2017-05-28] MEDS ORDERED: Loratadine 10 MG TABLET PO SCH (09:00)
[2017-05-28] MEDS ORDERED: Potassium Chloride Elixir 20 MEQ/15 ML UDC PO ONE (09:37)
[2017-05-28 10:21] VITALS: BP 113/70
[2017-05-28] MEDS: Milk and Molasses Enema 200 ML RC SCH (11:23)
== END 2017-05-28 14:04 | disposition home or self-care (01) | DRG 389 ==
LOC: EMEROO 19:50 → 3ANU 05-26 00:36 → SUATTDRO 05-26 00:36 → 3ANU 05-26 00:59
PROVIDERS: ADMIT Family Medicine; ATTEND Internal Medicine

== ENCOUNTER 2017-08-20 09:35 | Inpatient (IN) ==
--- NOTE | 2017-08-19 18:10 | Anesthesia Evaluation PreOp ---
Date of Encounter: 08/20/17 Time of Encounter: 10:22 - Past History Planned Operation: LEFT cea Cardiac History: HTN, Hyperlipidemia, Other (CAROTID STENOSIS) Pulmonary History: Smoker, COPD PLANER OPERATOR History: CVA (, right sided weakness), Other (PTSD, neuropathy) Other Medical History: Diabetes Type II, Other (skin cancer) Anesthesia History: No Prior Anesthetic Complications, Past Anesthesia (appy, explor lap.) Alcohol Use: rarely Drug use: none Medications and Allergies Albuterol Sulfate [Albuterol Inhaler] 2 puff IH Q6H PRN 05/26/17 [History] BuPROPion [Wellbutrin] 100 mg PO QAM 05/26/17 [History] Cholecalciferol (D-3) [Vitamin D] 3,000 unit PO DAILY 05/26/17 [History] Diphenhydramine HCl [Nighttime Sleep Aid] 50 mg PO HS 05/26/17 [History] Docusate Sodium [Dok] 100 mg PO BID 05/26/17 [History] Fluticasone Propionate Nasal [Flonase] 2 spr NS DAILY 05/26/17 [History] Gabapentin [Neurontin] 400 mg PO TID 05/26/17 [History] Ipratropium/Albuterol Neb [Duoneb] 3 ml PO QID PRN 05/26/17 [History] Lisinopril 2.5 mg PO DAILY 05/26/17 [History] Loratadine [Allergy Relief] 10 mg PO DAILY 05/26/17 [History] Methocarbamol [Robaxin-750] 750 mg PO QID 05/26/17 [History] Morphine Sulfate [Arymo ER] 15 mg PO BID 05/26/17 [History] Multivit-Min/FA/Lycopen/Lutein [A Thru Z Select Multivit Tab] 1 tab PO DAILY 06/02 [History] Omeprazole [PriLOSEC] 20 mg PO DAILY 05/26/17 [History] Ondansetron [Zofran] 8 mg PO BID PRN 05/26/17 [History] Quetiapine Fumarate [Seroquel] 150 mg PO HS 05/26/17 [History] Simvastatin [Zocor] 10 mg PO QPM 05/26/17 [History] Terazosin [Hytrin] 1 mg PO HS 05/26/17 [History] Venlafaxine [Effexor] 75 mg PO BID 05/26/17 [History] 3 Allergy/AdvReac Type Severity Reaction Status Date / Time Penicillins AdvReac Intermediate Hives Verified 08/20/17 10:18 levofloxacin [From Levaquin] AdvReac Nausea Verified 08/20/17 10:18 - Meds/Allergy Pre-op Review Medications Reviewed: Yes Allergies Reviewed: Yes Beta Blockers on Current Med List: No Anesthesia Results - Labs Laboratory Tests 08/19/17 08/19/17 15:55 15:55 Hgb 12.3 L Hct 39.0 Plt Count 299 Sodium 139 Potassium 3.9 BUN 8 Creatinine 1.02 - Imaging EKG: report reviewed (SINUS RHYTHM) Additional studies: stress test 2017: Impression: Perfusion imaging was negative for ischemia or infarct. Pharmacologic stress ECG is negative for ischemia at level of heart rate achieved. Gated EF > 70%. Anesthesia Exam Selected Entries 08/20/17 10:16 Temperature 98.0 F Pulse Rate 95 Respiratory Rate 18 Blood Pressure 99/72 O2 Sat by Pulse Oximetry 95 Weight: 70kg NPO (# of Hours): 8 - HEENT Pupil (Motor): EOMI Mallampati: II Teeth: Edentulous Oral Opening: Greater than 3 - PLANER OPERATOR LOC: Oriented PLANER OPERATOR Motor: Normal LUE, Normal RLE, Normal LLE, Normal Face, Deficit RUE PLANER OPERATOR Sensory: Normal: RUE, LUE, RLE, LLE, Face - Cardiac Rhythm: Regular Murmur: None - Pulmonary Breath Sounds: bilateral Clear Respiratory Effort: Symmetrical Anesthesia Assess/Plan ASA Score: 3 Modified Ivet Scale for Level of Consciousness: Cooperative, oriented, and tranquil Anesthetic Plan: General Monitoring Plan: Standard Monitors, A-Line Recovery Plan: PACU (agrees to GA and a-line)
[2017-08-20] MEDS ORDERED: CeFAZolin Syr 2,000MG/20 ML 2,000 MG/20 ML SYRINGE IVPB ONE (10:03)
[2017-08-20] MEDS ORDERED: Vancomycin 1,000 MG in D5% in Water 250 ML IVPB ONE ×2 (10:03→23:30)
[2017-08-20] MEDS ORDERED: Albuterol 2.5 MG/3 ML NEBULIZER IH ONE (10:15)
[2017-08-20] MEDS ORDERED: Ringers Solution, Lactated 1,000 ML IVC SCH (10:15)
[2017-08-20] MEDS ORDERED: Albuterol 2.5 MG/3 ML NEBULIZER ONE (10:21)
[2017-08-20] MEDS ORDERED: Bupivacaine-MPF 0.25% 10 ML VIAL ONE (10:42)
[2017-08-20] MEDS ORDERED: Heparin 1,000 UNITS/500 mL 500 ML ONE ×2 (10:43→10:44)
[2017-08-20] MEDS ORDERED: Lidocaine 1% 20 ML MDV ONE (10:43)
--- NOTE | 2017-08-20 10:47 | History & Physical Report ---
Date of Encounter: 08/20/17 Time of Encounter: 10:40 24 Hour HP Update - Instructions Instructions: If the History and Physical is less than 30 days old and was completed prior to A.M. admission and or procedure and has NOT been updated on calendar day of procedure please complete this update prior to performing procedure. - Update Patient reports changes in Medical Condition: No Changes in examination, assessment, or condition: No Changes in Medication: No Preop tests/diagnostics Reviewed: Yes Surgery Remains Indicated: Yes Consent for Planned Operative Procedure(s) Verified: Yes - Pre-Operative Checklist Preoperative Checklist Indicated: No Prophylactic Antibiotic Ordered: Yes (vancomycin due to MRSA risk) Home Medications Include Beta Cayetano: No Beta Cayetano Taken Today (Day of Surgery): No Beta Cayetano Taken Yesterday (Day Prior to Surgery): No Is VTE Prophylaxis Indicated?: Yes
[2017-08-20] MEDS ORDERED: Vancomycin 1,000 MG, Sodium Chloride IRRigation 1,000 ML IR ONE (11:30)
[2017-08-20] MEDS ORDERED: *HR* Remifentanil 2 MG VIAL IVP ONE (11:59)
[2017-08-20] MEDS ORDERED: Lidocaine -MPF 2% 2 ML VIAL ONE (11:59)
[2017-08-20] MEDS ORDERED: *HR* FentaNYL (PF) 100 MCG/2 ML VIAL ONE (11:59)
[2017-08-20] MEDS ORDERED: *HR* Propofol 200 MG/20 ML VIAL IVP ONE (11:59)
[2017-08-20] MEDS ORDERED: *HR* Heparin 5,000 UNIT/ML VIAL ONE (11:59)
[2017-08-20] MEDS ORDERED: *HR* Midazolam HCl 2 MG/2 ML VIAL ONE (11:59)
[2017-08-20] MEDS ORDERED: Lidocaine -MPF 4% 5 ML AMPUL ONE (11:59)
[2017-08-20] MEDS ORDERED: Ondansetron 4 MG/2 ML VIAL ONE (11:59)
[2017-08-20] MEDS ORDERED: EPHEDrine 50 MG/ML VIAL ONE (11:59)
[2017-08-20] MEDS ORDERED: Dexamethasone 4 MG/ML VIAL ONE (11:59)
--- NOTE | 2017-08-20 12:14 | Anesthesia Procedures ---
Date of Encounter: 08/20/17 Time of Encounter: 11:14 Procedures: Anesthesia - Arterial Line Consent obtained: verbal consent Time out performed: Yes Local Anesthetic: Lidocaine 1% (0.2mL ID injection) Size (Gauge): 20 Length (inches): 1 3/4 Technique Used: sterile prep, guide wire technique, direct puncture technique Post-Procedure: line taped into place, dry sterile dressing placed Patient tolerated procedure: well, no complications Complications: none Site: Radial R Vitals: please see anesthesia record Comments: successful on 1st attempt. A-line placement performed by Andrew Shanks SRNA
[2017-08-20] MEDS ORDERED: Albuterol 2.5 MG/3 ML NEBULIZER IH PRN (12:16)
[2017-08-20] MEDS ORDERED: Ondansetron 4 MG/2 ML VIAL IVP PRN ×2 (12:16→15:46)
[2017-08-20] MEDS ORDERED: Racepinephrine Neb 0.5 ML VIAL IH PRN (12:16)
[2017-08-20] MEDS ORDERED: *HR* Labetalol 20 MG/4 ML SYRINGE IVP PRN ×2 (12:16→15:46)
[2017-08-20] MEDS ORDERED: Ipratropium Neb 0.5 MG NEBULIZER IH PRN (12:16)
--- NOTE | 2017-08-20 13:27 | Operative Note ---
Date of procedure: 08/20/17 Pre-op diagnosis: Symptomatic left internal carotid artery stenosis Post-op diagnosis: same Procedure: Left carotid endarterectomy with hemashield patch angioplasty. Complications: None Anesthesia: GETA Surgeon: Demarco Thompson Was there an assistant branch operations manager present: No Estimated blood loss (cc): 50 Specimen: Left carotid plaque Condition: stable Disposition: PACU Procedure in Detail: Indications: The patient is a 67 year old male with a history of hypertension, hyperlipidemia, COPD and tobacco abuse. He had a left hemispheric cerebrovascular accident. He was found to have a 90% left internal carotid artery stenosis by CT angiogram. A left carotid endarterectomy was recommended to reduce his risk of future stroke. Procedure: The patient was identified in the preoperative area. The risks, benefits, and alternatives of the procedure were discussed and all questions were answered. He was then taken to the operating room and placed in supine position on the operating table. After induction of general endotracheal anesthesia, he was cleaned and draped in normal sterile fashion. A longitudinal incision was made anterior to the left sternocleidomastoid muscle. Hemostasis was obtained via electrocautery. Through a process of blunt , sharp, and electrocautery dissection, the platysma was traversed. The jugular vein was identified. The facial vein was clamped and divided. The ends of the vessel were tied off with a 2-0 silk suture ligature. The jugular vein was then retracted to expose the carotid bifurcation. The patient received 3000 units of heparin intravenously at this time. Proximal dissection of the common and external carotid arteries were performed circumferentially. Dissection of the internal carotid was performed circumferentially. Vessels loops were passed around the internal and external carotid and an umbilical tape was passed from the common carotid artery. The patient received additional 2000 units of heparin intravenously. After waiting adequate time for the heparin to circulate, the vessels were occluded. A longitudinal arteriotomy was then made into the common carotid artery and extended into the internal carotid beyond the plaque. Vigorous pulsatile retrograde flow was noted from the internal carotid artery upon release of the loop. Given the strong retrograde perfusion, a shunt was not placed. A dental [place] was used to perform a standard endarterectomy. Proximal and distal endpoints were inspected. No elevated flaps were noted. A Hemashield patch was cut to fit the defect and sutured in place with running 6 -0 Prolene. Prior to completing the closure, each vessel was flushed and then reoccluded. Heparinized saline was infused into the lumen. The patch was completed and flow was restored in the external carotid artery, followed the common carotid artery, lastly the internal carotid artery was opened. A low resistance arterialized signal was present within the internal carotid artery beyond the patch. Thrombin and Gelfoam were used to aid in hemostasis. Meticulous hemostasis was obtained throughout the wound with electrocautery. Platelet rich and platelet poor plasma were infused into the wounds. The sternocleidomastoid was reapproximated with interrupted 3-0 Vicryl. Platelet rich and platelet poor plasma were infused into the wound. A TLS drain was brought through a separate stab incision and sutured in place with 0 silk suture. The platysma was reapproximated with running 3-0 Vicryl. Local anesthetic was infused in the skin. A 3-0 Monocryl was used to reapproximate the skin. Sterile dressing was applied. The patient was extubated, taken to the recovery room in stable condition.
[2017-08-20] MEDS: *HR* HYDROmorphone (PF) 1 MG/ML SYRINGE IVP PRN ×3 (14:18→14:50)
[2017-08-20] MEDS ORDERED: Acetaminophen 325 MG TABLET PO PRN (15:46)
[2017-08-20] MEDS ORDERED: Ipratropium/Albuterol Neb 3 ML IH PRN (15:46)
[2017-08-20] MEDS ORDERED: Naloxone 0.4 MG/ML INJ IVP PRN ×2 (15:46)
[2017-08-20] MEDS ORDERED: *HR* HYDROcodone/Acet 5/325 mg TABLET PO PRN (15:46)
[2017-08-20] MEDS ORDERED: *HR* Morphine 2 MG/ML SYRINGE IVP PRN (15:46)
[2017-08-20] MEDS: CeFAZolin Premix DUPLEX 2,000 MG/50 ML BAG IVPB SCH ×2 (16:31→23:23)
[2017-08-20] MEDS: *HR* Metoprolol 5 MG/5 ML VIAL IVP SCH (16:32)
[2017-08-20] MEDS: *HR* OxyCODONE Immed Rel 5 MG TABLET PO PRN (16:32)
[2017-08-20] MEDS: Gabapentin 400 MG CAPSULE PO SCH ×2 (16:32→21:17)
[2017-08-20] MEDS: Methocarbamol 750 MG TABLET PO SCH ×2 (18:44→21:18)
[2017-08-20] MEDS ORDERED: 0.9 % Sodium Chloride 1,000 ML ONE (20:05)
[2017-08-20] MEDS ORDERED: 0.9 % Sodium Chloride 1,000 ML IVC SCH (20:15)
[2017-08-21] MEDS: *HR* Metoprolol 5 MG/5 ML VIAL IVP SCH ×2 (04:31→06:34)
[2017-08-21] MEDS ORDERED: *HR* Heparin 5,000 UNIT/ML VIAL SQ SCH ×2 (06:00)
--- NOTE | 2017-08-21 06:48 | Discharge Summary ---
Date of Encounter: 08/21/17 Time of Encounter: 07:15 - Discharge Diagnosis (1) Carotid stenosis, left Priority: Primary Status: Chronic Comments: The patient is postoperative day #1 after left carotid endarterectomy. His incision is healing well. He has no new neurologic deficits. He will be discharged today. (2) COPD (chronic obstructive pulmonary disease) Priority: Secondary Status: Chronic Qualifiers: COPD type: emphysema Emphysema type: panlobular Qualified Code(s): J43.1 - Panlobular emphysema (3) Hyperlipidemia Priority: Secondary Status: Acute Qualifiers: Hyperlipidemia type: mixed hyperlipidemia Qualified Code(s): E78.2 - Mixed hyperlipidemia (4) Hypertension Priority: Secondary Status: Chronic Qualifiers: Hypertension type: essential hypertension Qualified Code(s): I10 - Essential (primary) hypertension (5) Chronic disease anemia Priority: Secondary Status: Chronic Comments: The patient has chronic anemia. He is hemodynamically stable without evidence of ongoing blood loss. - Discharge Medications Prescriptions: Acetaminophen [Tylenol] 1,000 mg PO Q6HR PRN #90 tablet PRN Reason: postoperative pain Home Medications: Albuterol Sulfate [Albuterol Inhaler] 2 puff IH Q6H PRN 05/26/17 [History] BuPROPion [Wellbutrin] 100 mg PO QAM 05/26/17 [History] Cholecalciferol (D-3) [Vitamin D] 3,000 unit PO DAILY 05/26/17 [History] Diphenhydramine HCl [Nighttime Sleep Aid] 50 mg PO HS 05/26/17 [History] Docusate Sodium [Dok] 100 mg PO BID 05/26/17 [History] Fluticasone Propionate Nasal [Flonase] 2 spr NS DAILY 05/26/17 [History] Gabapentin [Neurontin] 400 mg PO TID 05/26/17 [History] Ipratropium/Albuterol Neb [Duoneb] 3 ml PO QID PRN 05/26/17 [History] Lisinopril 5 mg PO DAILY 05/26/17 [History] Loratadine [Allergy Relief] 10 mg PO DAILY 05/26/17 [History] Methocarbamol [Robaxin-750] 750 mg PO QID 05/26/17 [History] Morphine Sulfate [Arymo ER] 15 mg PO BID 05/26/17 [History] Multivit-Min/FA/Lycopen/Lutein [A Thru Z Select Multivit Tab] 1 tab PO DAILY 06/02 [History] Omeprazole [PriLOSEC] 20 mg PO DAILY 05/26/17 [History] Ondansetron [Zofran] 8 mg PO BID PRN 05/26/17 [History] Quetiapine Fumarate [Seroquel] 150 mg PO HS 05/26/17 [History] Simvastatin [Zocor] 20 mg PO QPM 05/26/17 [History] Terazosin [Hytrin] 1 mg PO HS 05/26/17 [History] Venlafaxine [Effexor] 75 mg PO BID 05/26/17 [History] Aspirin [Ecotrin] 325 mg PO DAILY 08/20/17 [History] Clopidogrel [Plavix] 75 mg PO DAILY 08/20/17 [History] Polyethylene Glycol 3350 [MiraLAX] 17 gm PO DAILY 08/20/17 [History] Sertraline [Zoloft] 50 mg PO DAILY 08/20/17 [History] Acetaminophen [Tylenol] 1,000 mg PO Q6HR PRN #90 tablet 08/21/17 [Rx] Allergies/Adverse Reactions: 3 Allergy/AdvReac Type Severity Reaction Status Date / Time Penicillins AdvReac Intermediate Hives Verified 08/20/17 10:18 levofloxacin [From Levaquin] AdvReac Nausea Verified 08/20/17 10:18 Date of admission: 08/20/17 15:07 Primary care physician: PCP MD Procedure(s) Performed: Left carotid endarterectomy Discharging clinician: Demarco Thompson Anticipated date of discharge: 08/21/17 - Patient Status Disposition: Home, Self-Care Condition: Good Functional capacity at discharge: independent ambulation Overall status at discharge: patient is back to baseline - Discharge Instructions Instructions: Heart Healthy Diet (DC), Carotid Endarterectomy (DC), Peripheral Vascular Disorders (DC) Follow Up With: Demarco Thompson MD [Partnered Physician] - 09/29/17 1:00 pm MD,PCP [Primary Care Provider] - 08/27/17 9:15 am (This is in the discharge clinic. ) Additional Instructions: MAY REMOVE BANDAGE NAD SHOWER ON 08/22/17. WASH WOUND GENTLY AND PAT TO DRY. NO DRIVING FOR [address] THOMPSON AT [phone] WITH QUESTIONS OR CONCERNS. - Diet and Activity Activity: increase activity as tolerated Diet: advance to your usual diet - Hospital Course Hospital course: Mr. Ochoa is a 67 year old male with symptomatic left internal carotid artery stenosis. He was admitted on 08/20/17. He underwent a left carotid endarterectomy and tolerated the procedure well. He was discharged on postoperative day #1 in stable condition without complications. Time spent discussing smoking cessation with patient: 3 to 10 minutes - Time Spent with Patient Total time spent providing and/or coordinating discharge services: Exam Vital Signs, Last 4 Hours Temp Pulse Resp BP Pulse Ox 08/21/17 04:38 98.6 F 74 19 88/52 99 General: Present: Conversant, No Apparent Distress HEENT: Present: Trachea midline, Pupils equal Neck: Absent: Tracheal deviation Cardiac: Present: Reg Rate and Rhythm Lungs: Present: Normal Breath Sounds Neuro: Present: Alert and responsive, No focal deficits noted, Motor nerves grossly intact, Sensory nerves grossly intact Abdomen: Present: Soft Vascular: Present: Normal capillary refill, Surgical incisions (Incision clean, dry and intact without erythema or drainage, no hematoma). Absent: Cyanosis, Edema - VTE Documentation of Mechanical Device: Venous foot pump, device
[2017-08-21 08:07] VITALS: BP 104/54
[2017-08-21] MEDS: Methocarbamol 750 MG TABLET PO SCH (08:16)
[2017-08-21] MEDS: *HR* OxyCODONE Immed Rel 5 MG TABLET PO PRN (08:17)
[2017-08-21] MEDS: Gabapentin 400 MG CAPSULE PO SCH (08:17)
[2017-08-21] MEDS ORDERED: Cholecalciferol (D-3) 1,000 UNIT TABLET PO SCH (09:00)
[2017-08-21] MEDS ORDERED: Aspirin Enteric Coated 325 MG Tablet PO SCH (09:00)
[2017-08-21] MEDS ORDERED: Fluticasone Propionate Nasal 50 MCG/SPRAY BOTTLE NS SCH (09:00)
[2017-08-21] MEDS ORDERED: Multivit/Ca/Min/Fe/FA 1 TAB TABLET PO SCH (09:00)
[2017-08-21] MEDS ORDERED: Loratadine 10 MG TABLET PO SCH (09:00)
== END 2017-08-21 09:32 | disposition home or self-care (01) | DRG 38 ==
LOC: SAMDAY 09:35 → 2NNU 15:07
PROVIDERS: ADMIT Surgery; ATTEND Surgery